=== PATIENT | female | born 1995 | race Caucasian/White ===

== ENCOUNTER 2018-01-26 12:58 | Inpatient (IN) | payer BC, OTHER ==
--- OUTSIDE RECORDS SUMMARY | 2018-01-30 06:09 | XMS REPORT ---
:1995 [facility] [address] [place] [address] Dr. Juarez [address] [place] [id number] Care Team Providers Name Role Phone ANDREW MARTINEZ Primary Care Provider Unavailable Problems This patient has no known problems. Allergies, Adverse Reactions, Alerts This patient has no known allergies or adverse reactions. Medications This patient has no known medications. Encounters Start End Encounter Admission Attending Care Care Encounter Date/Time Date/Time Type Type Clinicians Facility Department ID 2017-11-26 2017-11-26 Outpatient [facility] [id number] 15:59:00 15:59:00 2017-10-07 2017-10-07 Emergency E [facility] [id number] 23:46:00 23:46:00
[2018-01-30] MEDS ORDERED: Ringers Lactate 1,000 ML IV ONE (06:15)
[2018-01-30] MEDS ORDERED: PENICILLIN G POT 5 MU/100 ML BAG IV ONE (06:16)
[2018-01-30] MEDS ORDERED: PENICILLIN 5 MU in NA CHLORIDE 0.9% 100 ML IV ONE (06:23)
[2018-01-30] MEDS ORDERED: Ringers Lactate 1,000 ML IV PRN ×2 (06:23→06:27)
[2018-01-30] MEDS ORDERED: OXYTOCIN/LR 20 UNITS/1,000 ML BAG IV SCH (07:00)
[2018-01-30] MEDS ORDERED: Ringers Lactate 1,000 ML IV SCH (07:00)
[2018-01-30 07:02] VITALS: BMI 50.3
[2018-01-30 07:03] LABS: RPR Titer ND
[2018-01-30 07:05] LABS: Absolute Lymphocytes (CBC) 2.2 K/uL (0.7-4.9); Absolute Monocytes 0.5 K/uL (0.1-1.3); Absolute Neutrophil 7.1 K/uL (1.8-8.0); Basophils % 0.2 % (0-1.3); Eosinophils % 0.9 % (0-4.4); Hematocrit 34.5 % (36.0-45.0); MCH 28.6 pg (27.0-35.0); MCV 85.9 fL (80-100); MPV 9.2 fL (7.6-11.3); Monocytes % 5.1 % (3.3-12.3); RBC Red Blood Cell Count 4.02 M/uL (3.86-4.86)
[2018-01-30 07:06] LABS: Urine Appearance CLOUDY; Urine Bilirubin NEGATIVE (NEG); Urine Blood NEGATIVE (NEG); Urine Color DK YELLOW; Urine Glucose NEGATIVE (NEG); Urine Protein NEGATIVE (NEG); Urine Specific Gravity 1.025 (1.005-1.030)
[2018-01-30 07:18] LABS: Urine Microscopic Reflex ORDER UMIC
[2018-01-30 07:30] LABS: Urine Bacteria <20 /HPF (<20); Urine Culture Reflex Order NOT NEEDED; Urine RBC <5 /HPF (NONE SEEN)
[2018-01-30 07:31] LABS: Urine Amorphous Sediment 2+ /HPF (NONE SEEN); Urine Mucus 1+ /HPF (NONE SEEN)
--- NOTE | 2018-01-30 07:38 | P.PN ---
Date of Service: 01/30/18 Reactive fht's, has received first dose of PCN, spontaneous contractions noted, AROM by attempted placement of fse, cx 1-1+, 30% effacement, vtx, minus 2 station. Will begin pitocin
[2018-01-30] MEDS ORDERED: ROPIVACAINE HCL 100 ML IV PRN (08:41)
[2018-01-30] MEDS ORDERED: ROPIVACAINE HCL 0.2% 20ML AMP IV ONE (08:42)
[2018-01-30] MEDS ORDERED: PENICILLIN 2.5 MU in NA CHLORIDE 0.9% 100 ML IV SCH (09:00)
[2018-01-30] MEDS ORDERED: BUTORPHANOL 1 MG/ML INJ ONE (11:44)
[2018-01-30] MEDS ORDERED: PROMETHAZINE 25 MG/ML VIAL ONE (11:45)
[2018-01-30] MEDS ORDERED: BUTORPHANOL 1 MG/ML INJ IV ONE (12:04)
[2018-01-30] MEDS ORDERED: PROMETHAZINE 25 MG/ML VIAL IV ONE (12:05)
[2018-01-30] MEDS ORDERED: PROMETHAZINE 25 MG/ML VIAL IM PRN (12:08)
[2018-01-30] MEDS ORDERED: METHYLERGONOVINE 0.2MG/ML AMP IM ONE ×2 (15:34→21:28)
--- NOTE | 2018-01-30 18:35 | P.PN ---
Reactive fht's, no periodic decells, cx, 70%, 3+cm, vtx, minus one. Will continue to observe for progress, will get anesthesia to top up epidural, patient feeling more discomfort with ctx.
[2018-01-30] MEDS ORDERED: ROPIVACAINE HCL 20 ML ONE (19:10)
[2018-01-30] MEDS ORDERED: LIDOCAINE 2% MPF 5 ML VIAL ONE ×3 (19:39→22:42)
[2018-01-30] MEDS ORDERED: FENTANYL/BUPIVACAINE/NS/PF 200 MCG/100 ML BAG EP ONE (19:49)
[2018-01-30] MEDS ORDERED: BUPIVACAINE 0.25% PF 30 ML VIAL ONE (19:49)
[2018-01-30 21:11] LABS: RPR (Rapid Plasma Reagin) NON-REACT (NON-REACT)
[2018-01-30] MEDS ORDERED: NA CIT/CITRIC AC 30 ML ORAL UDC ONE ×2 (21:29→23:39)
[2018-01-30] MEDS ORDERED: METOCLOPRAMIDE 10 MG/2mL INJ ONE (21:29)
[2018-01-30] MEDS ORDERED: CEFAZOLIN/SWI 2gm 2 GM/20 ML SYR ONE ×2 (21:29→22:29)
--- NOTE | 2018-01-30 22:30 | P.PN ---
CX unchanged at 3+, vtx not tightly applied, suspect cpd as cause of ftp. Will proceed with primary . Discussed with patient and family.
[2018-01-30] MEDS ORDERED: CARBOPROST TROME 250 MCG/ML IM ONE (22:46)
[2018-01-30] MEDS ORDERED: MORPHINE SULFATE/PF 1 MG/ML (10 ML AMP) ONE (23:11)
[2018-01-30] MEDS ORDERED: OXYTOCIN 10 UNIT/ML ML IV ONE (23:11)
[2018-01-30] MEDS ORDERED: Phenylephrine HCl 10 MG/ML 1 ML VIAL ONE (23:12)
[2018-01-30] MEDS ORDERED: NA CIT/CITRIC AC 30 ML ORAL UDC PO ONE (23:30)
[2018-01-30] MEDS ORDERED: ONDANSETRON HCL 40 MG/20 ML VIAL ONE (23:39)
[2018-01-30] MEDS ORDERED: ONDANSETRON 4 MG/2 ML VIAL IV ONE (23:40)
[2018-01-30] MEDS ORDERED: ONDANSETRON 4 MG/2 ML VIAL ONE (23:45)
[2018-01-31] MEDS ORDERED: ONDANSETRON 4 MG (ODT) TAB PO PRN (00:10)
[2018-01-31] MEDS ORDERED: Oxycodone HCl/Acetaminophen 1 TAB TAB PO PRN (00:10)
[2018-01-31] MEDS ORDERED: CARBOPROST TROME 250 MCG/ML IM PRN (00:10)
[2018-01-31] MEDS ORDERED: METHYLERGONOVINE 0.2MG/ML AMP IM PRN (00:10)
[2018-01-31] MEDS ORDERED: METHYLERGONOVINE 0.2 MG TAB PO PRN (00:10)
[2018-01-31] MEDS ORDERED: KETOROLAC 30 MG/ML INJ IV PRN (00:10)
--- NOTE | 2018-01-31 00:14 | P.BOP ---
Preoperative diagnosis: 40+ week , FTP Postoperative diagnosis: Same, macrosomia Primary procedure: Wafer Substrate Tester: Lindsay Cohen Estimated blood loss: 1000ml Specimen: placenta Anesthesia: epidural Complications: None Drain(s): Urinary catheter Transferred to: Other (274) Condition: Good
[2018-01-31] MEDS ORDERED: KETOROLAC TROM 60 MG/2 ML INJ IM ONE (00:16)
[2018-01-31] MEDS ORDERED: ONDANSETRON 4 MG/2 ML VIAL ONE (00:45)
[2018-01-31] MEDS: OXYTOCIN/LR 20 UNITS/1,000 ML BAG IV SCH ×2 (01:00→06:20)
--- NOTE | 2018-01-31 08:16 | P.PN ---
S-No complaints O-Afeb, vs stable, bandage dry A-Satisfactory P_Routine po care explained, advance diet today, ambulate p noon.
[2018-01-31 13:04] LABS: Absolute Lymphocytes (CBC) 1.4 K/uL (0.7-4.9); Absolute Monocytes 0.7 K/uL (0.1-1.3); Absolute Neutrophil 10.2 K/uL (1.8-8.0); Basophils % 0.7 % (0-1.3); Eosinophils % 0.2 % (0-4.4); Hematocrit 29.3 % (36.0-45.0); Lymphocytes % 11.1 % (15.3-44.8); MCV 86.2 fL (80-100); MPV 9.2 fL (7.6-11.3); Monocytes % 5.7 % (3.3-12.3)
[2018-01-31] MEDS: Oxycodone HCl/Acetaminophen 1 TAB TAB PO PRN ×2 (16:22→20:31)
[2018-02-01] MEDS: Oxycodone HCl/Acetaminophen 1 TAB TAB PO PRN ×4 (00:16→21:15)
[2018-02-01 05:52] LABS: Absolute Lymphocytes (CBC) 1.9 K/uL (0.7-4.9); Absolute Monocytes 0.7 K/uL (0.1-1.3); Absolute Neutrophil 8.7 K/uL (1.8-8.0); Basophils % 0.1 % (0-1.3); Eosinophils % 0.8 % (0-4.4); Hematocrit 29.4 % (36.0-45.0); Lymphocytes % 16.9 % (15.3-44.8); MCH 29.4 pg (27.0-35.0); MCV 85.6 fL (80-100); MPV 8.7 fL (7.6-11.3); Monocytes % 6.2 % (3.3-12.3); RBC Red Blood Cell Count 3.44 M/uL (3.86-4.86)
--- NOTE | 2018-02-01 06:56 | P.PN ---
S-No complains O-Afeb, vs stable, 06/22 po hh, bandage off, abdomen soft A-Satisfactory P-Home in am, possibly this pm.
[2018-02-01] MEDS ORDERED: Tdap (Diph,Pertuss(Acell),Tet Vac) 0.5 ML SYR IMVAC ONE (12:31)
[2018-02-01] MEDS ORDERED: MEASLES,MUMPS,RUBELLA VAC 0.5ML SQVAC ONE (12:31)
[2018-02-02] MEDS: Oxycodone HCl/Acetaminophen 1 TAB TAB PO PRN ×2 (02:25→08:05)
--- NOTE | 2018-02-02 06:26 | DS ---
DISMISSAL SUMMARY Hospital Discharge Diagnoses: A 40 plus week , failure to progress in labor, macrosom ia, morbid obesity, delivery by primary section. Complications: None. Procedures: Artificial rupture of membranes, Pitocin induction of labor, placement of epidural katlin ter, primary section, delivery of viable macrosomic male infant. Hospital Course: The patient is a 22-year-old female, 1, para 0, at 40 plus weeks gestation, admitted for induction secondary to prolonged . She failed to progress beyond 3+ cm with vertex remaining high. She delivered by primary section with epidural anesth esia, a 9 pounds 11 ounce male infant, 8 and 9. She was dismissed on the second postoperative day, ambulatory on a select diet with routine post section activity restrictions, to be seen back in my office in 1 week for incision check. She had an admission hemoglobin and hematocrit of 1 1.5 and 34.5, dismissal of 10.1 and 29.4. She was dismissed with a prescription for Tylenol No. 3 #2 0 for pain relief. She is immunized for rubella, will be immunized for varicella in my office nicole anderson of nonimmunity. She is Rh positive blood type. She is to continue taking her iron and vi tamins and was dismissed with usual post section activity restrictions. KULDEEP/MAYRA Voice ID: [id number] Report ID: [id number]
[2018-02-02 09:12] VITALS: BP 139/73; TEMP 97.1
--- NOTE | 2018-02-02 09:29 | OP ---
Surgeon: Ezequiel Carr MD Anesthesiologist: Dr. Sergey Steiner. Preoperative Diagnosis: A 40+ week , failure to progress in labor. Procedure: Primary section. Anesthesia: Epidural anesthesia. Postoperative Diagnosis: Delivery of viable macrosomic male . Description Of Procedure: After a satisfactory level of epidural anesthesia was obtained and the pat ient had received 3 g of Ancef for antibiotic prophylaxis, after receiving penicillin prophylaxis for strep carriage during her labor course, the patient was prepped and draped in the usual fashion for abdominal surgery and after vaginal prep with Betadine solution. A Pfannenstiel skin incision was ma de, carried down to the fascia. Fascia incised with a combination of sharp and blunt dissection. Th is was from the underlying rectus muscles. These were divided in the midline. The periton eum was entered. The vesicouterine peritoneum incised and bladder flap was developed. A low-transve rse uterine incision was made. A 9 pounds 11 ounce male , 9, 9, was delivered. The cord was clamped, cut, and the placed in a warmer. Cord blood was obtained. The placenta was spo ntaneously expelled and appeared to be intact. Uterus was then exteriorized and placenta manually re moved. The uterus was closed in 2 layers utilizing a running unlocked suture of 0 Vicryl with a seco nd layer used to imbricate the first layer. Vesicouterine peritoneum bladder flap was reapproximated with running suture of 3-0 Vicryl. The uterus was returned to the peritoneal cavity, which was ema karina of amniotic fluid, debris, and blood clot. The muscles were approximated in the midline with sim ple sutures of 0 Vicryl. The fascia was closed with running suture of #1 PDS running from either mar gin to the middle. The subcutaneous tissue was approximated with simple sutures of 3-0 Vicryl, and s ubdermal running suture of 3-0 Vicryl, and a subcuticular suture of 4-0 Monocryl. The patient was ta evon to the recovery room in satisfactory condition with sponge and needle counts correct x2 with a Fo oliver catheter in place. Manufact[employer] Build[employer] Supervisor Surgeon: Dr. Cohen. KULDEEP/DEREKL Voice ID: [id number] Report ID: [id number]
--- NOTE | 2018-02-02 09:32 | PREOPHP ---
Date of Admission: 01/30/2018 History Of Present Illness: The patient is a 22-year-old single female, 1, para 0, now at 40 and 3/7th weeks gestation. She is scheduled for induction of labor because of prolonged p regnancy. She has been followed during this with complications of morbid obesity, rubella nonimmunity, varicella nonimmunity, and now positive beta strep carriage. Past Medical History: Please see records. Family History: Please see records. Review of Systems: She reports no recent cough, cold, fever, or chills. No recent nausea, vomiting. She denies any keyshawn ast lumps. Her has been active. She denies any bladder symptoms, vaginal bleeding, or change in bowel habits. She has had increasing contractions. Physical Examination: General: Morbidly obese female, in no apparent distress. Neck: Supple without adenopathy or thyromegaly. Lungs: Clear. Cardiac: Regular rate and rhythm without murmurs. Breasts: Not examined. Abdomen: Estimated weight of approximately 8+ pounds. Pelvic: Cervix noted to be 1+ cm, vertex at -1 station, approximately 30-40% effaced cervix. Extremities: 1+ lower extremity edema. Impression: A 40+ week , morbid obesity. Plan: The patient will be admitted for induction of labor. She has signed permit in my presence. KULDEEP/MAYRA Voice ID: [id number]
[2018-02-03 02:45] LABS: HBsAG Nonreactive (Nonreactive)
== END 2018-02-02 09:25 | disposition home or self-care (01) | DRG 766 ==
LOC: 2ND-WC 01-30 06:07
PROVIDERS: ADMIT Specialist; ATTEND Specialist
PROC: 10907ZC Drainage of Amniotic Fluid, Therapeutic from Products of Conception, Via Natural or Artificial Opening (ICD-10-PCS; 2018-01-30)
PROC: 3E033VJ Introduction of Other Hormone into Peripheral Vein, Percutaneous Approach (ICD-10-PCS; 2018-01-30)
PROC: 10D00Z1 Extraction of Products of Conception, Low, Open Approach (ICD-10-PCS; principal; 2018-01-30 22:30)
DX: O62.0 Primary inadequate contractions (principal); O66.2 Obstructed labor due to unusually large fetus; O48.0 Post-term pregnancy; O99.214 Obesity complicating childbirth; E66.01 Morbid (severe) obesity due to excess calories; O99.824 Streptococcus B carrier state complicating childbirth; Z3A.40 40 weeks gestation of pregnancy; Z37.0 Single live birth
CPT/HCPCS: 36415; 81003; 81015; 85025; 86592; 86901; 87340; 88305; 90707; J0595; J0690; J1885; J2210; J2370; J2405; J2550; J2590; J2765; J2795